=== PATIENT | female | born 1970 | race Caucasian/White ===

== ENCOUNTER 2017-01-08 18:17 | Emergency (ER) | payer OTHER ==
[~2017-01-08] VITALS: Ht 177.8 cm; Wt 93.2 kg
[~2017-01-08 18:17] MED LIST: AMITRIPTYLINE; AMITRIPTYLINE H75 M1 PO; ASPIRIN81 M1 PO; BACTRIM,SEPT1 TABLET PO; BAYER ASPIRIN325 M1 PO; BAYER CHILDREN'81 MG PO; CALAN SR,COVER120 M1 PO; CALAN120 MG PO; CLEOCIN300 MG PO; CLINDAMYCIN HC300 MG PO; COBAL-10001000 MCG/2 IM; CYANOCOBAL1000 MCG/2 IM; CYCLOBENZAPRINE10 MG PO; CYMBALTA30 MG PO; Calan PO; Cymbalta PO; DELTASONE5 MG PO; DEPAKOTE ER500 MG PO; DESYREL100 MG PO; DIAZEPAM5 MG PO; DICLOFENAC SODI75 MG PO; DIFLUCAN150 MG PO; Diabeta,Micronase PO; Dulcolax PO; Dulcolax PR; Duragesic TD; EPIPEN ADU0.3 MG/0.3 IM; Ecotrin PO; Elavil PO; FENTANYL1 EAC2 TD; FENTANYL1 EAC3 TD; FENTANYL1 EAC5 TD; FLEXERIL10 MG PO; FLOMAX0.4 M1 PO; FLOMAX0.4 MG PO; FLUCONAZOLE150 M1 PO; Flomax PO; GLUCOPHAGE500 MG PO; Glucophage PO; HYDROMORPHINE PO; KEFLEX 500MG PO; KEFLEX500 MG PO; LIDODERM 5% P1 PATCH PO; LIDODERM 5% P1 PATCH TD; LITE COAT ASPI325 M1 PO; LORTAB 7.5-5001 EACH PO; METAXALONE800 MG PO; MIDRIN1 CAPSULE PO; MIRTAZAPINE30 MG PO; MOBIC7.5 MG PO; MORPHINE SULFAT15 MG PO; MORPHINE SULFAT30 M1 PO; MORPHINE SULFAT30 M2 PO; MS CONTIN,ORAMO15 M1 PO; MYCOSTATIN5 ML PO; Medrol Dosepak PO; NAPROXEN500 M1 PO; NEURONTIN100 MG PO; NEXIUM40 MG PO; OXYCONTIN15 MG PO; OYST-CAL D, OS500 M1 PO; PAXIL20 MG PO; PHENERGAN12.5 M1 PO; PREDNISONE20 MG PO; PROMETHAZINE HC25 M1 PO; PROMETHAZINE12.5 M1 PO; Percocet 5/325,Endoc PO; RABEPRAZOLE SOD20 MG PO; REMERON15 M2 PO; Remeron PO; SOMA350 MG PO; Skelaxin PO; TAMSULOSIN HCL0.4 MG PO; THERAGRAN1 TABLET PO; TOPAMAX50 MG PO; TRAZODONE HCL50 MG PO; ULTRAM50 MG PO; URELLE,DARPA1 TABLET PO; VALIUM5 MG PO; VERAPAMIL ER120 M1 PO; VERAPAMIL HCL120 MG PO; VITAMIN B 12 IM; VITAMIN B-1000 MCG/M IM; VIVELLE,ESTRAD0.1 MG TD; VOLTAREN75 MG PO; Vitamin B-12 IM; Voltaren PO; ZANAFLEX4 M1 PO; ZANAFLEX4 MG PO; ZOFRAN ODT4 MG PO; ZOFRAN ODT4 MG SL; Zofran PO; predniSONE PO
[2017-01-08 21:13] VITALS: BP 101/79
== END 2017-01-08 21:15 | disposition home or self-care (01) ==
LOC: EME 18:17
DX: S39.012A Strain of muscle, fascia and tendon of lower back, initial encounter (principal); V49.40XA Driver injured in collision with unspecified motor vehicles in traffic accident, initial encounter; C34.90 Malignant neoplasm of unspecified part of unspecified bronchus or lung; Z87.891 Personal history of nicotine dependence; Z90.49 Acquired absence of other specified parts of digestive tract; Z90.710 Acquired absence of both cervix and uterus
CPT/HCPCS: 70450; 72125; 72131; 74176; 99281; 99285; J2270; J3360

== ENCOUNTER 2017-04-14 13:38 | Emergency (ER) | payer OTHER ==
[~2017-04-14] VITALS: Ht 177.8 cm; Wt 90.6 kg
[2017-04-14 16:24] LABS: HEMATOCRIT 34.5 % (36.0-46.0); MCH 27.7 PG (29.0-34.0); MCHC 33.3 G/DL (30.0-36.0); MCV 83.1 FL (83-99); MEAN PLAT.VOLUME 10.8 uM^3 (9.5-12.4); PLATELET COUNT 159 K/uL (156-360); RBC DIS.WIDTH-CV 11.9 % (11.8-14.6); RED BLOOD COUNT 4.15 M/uL (3.80-5.20); WHITE BLOOD COUNT 6.3 K/uL (4.1-10.2)
[2017-04-14 16:32] LABS: CHLORIDE 105 mEq/L (99-109); POTASSIUM 3.8 mEq/L (3.7-5.4)
[2017-04-14 16:33] LABS: SODIUM 141 mEq/L (136-147)
[2017-04-14 16:35] LABS: GLUCOSE 78 mg/dL (70-99)
[2017-04-14 16:36] LABS: ANION GAP 7 MEQ/L (2-14)
[2017-04-14 16:37] LABS: TOTAL BILIRUBIN 0.6 mg/dL (0.0-1.0)
[2017-04-14 16:38] LABS: ALKALINE PHOSPHATASE 91 IU/L (3-129); GFR ESTIMATE (CALCULATED) > 59 mL/min/
[2017-04-14 16:40] LABS: UREA NITROGEN (BUN) 10 mg/dL (9-23)
[2017-04-14 16:42] LABS: CREATINE KINASE 75 IU/L (1-294); LIPASE 24 U/L (1.0-51.0); TOTAL CK 75 IU/L (1-294)
[2017-04-14 16:44] LABS: TROP-I INTERPRETATION NEGATIVE; TROPONIN-I < 0.01 ng/mL (0.0-0.30)
[2017-04-14 16:48] LABS: CK-MB 0.5 ng/mL (0.0-4.9); QUANTITATIVE HCG < 4.0 MIU/ML
[2017-04-14 18:09] LABS: ADD MIUA? YES; BILIRUBIN NEGATIVE; BLOOD SMALL; COLOR YELLOW ((YELLOW)); GLUCOSE (STRIP) NEGATIVE; KETONES NEGATIVE; LEUKOCYTES NEGATIVE; NITRITE NEGATIVE; PROTEIN (STRIP) NEGATIVE; SPECIFIC GRAVITY 1.016 (1.000-1.030)
[2017-04-14 18:28] LABS: BACTERIA RARE /HPF; EPITHELIAL CELLS 1+ /HPF; HYALINE CASTS 0-5 /LPF; MUCUS 2+ /LPF; UCUL ADDED? NO; WHITE BLOOD CELLS 0-5 /HPF (0-5)
[2017-04-14] MEDS ORDERED: ZOFRAN ODT4 MG PO (22:30)
[2017-04-14] MEDS ORDERED: MACROBID100 MG PO (22:30)
[2017-04-14 22:48] VITALS: BP 115/78
== END 2017-04-14 22:48 | disposition home or self-care (01) ==
LOC: EME 13:38
PROVIDERS: Emergency Medicine
DX: N39.0 Urinary tract infection, site not specified (principal); R07.89 Other chest pain; R10.30 Lower abdominal pain, unspecified; K21.9 Gastro-esophageal reflux disease without esophagitis; Z86.73 Personal history of transient ischemic attack (TIA), and cerebral infarction without residual deficits; Z87.440 Personal history of urinary (tract) infections; Z90.710 Acquired absence of both cervix and uterus; Z85.118 Personal history of other malignant neoplasm of bronchus and lung; Z87.891 Personal history of nicotine dependence; M79.7 Fibromyalgia
CPT/HCPCS: 71020; 74177; 80053; 81003; 82550; 82553; 83690; 84484; 84702; 85027; 93005; 99281; 99284; J1200; J1885; J2405; J2765; J2930; J7030